=== PATIENT | female | born 2000 | race Caucasian/White ===

== ENCOUNTER 2019-01-10 19:13 | Emergency (ER) | payer OTHER ==
[2019-01-10 19:47] VITALS: BP 120/88
[2019-01-10] MEDS ORDERED: Albuterol 2.5 MG/3 ML NEB.SOL* (0.083%) INH ONE (19:57)
--- NOTE | 2019-01-10 20:08 | UC ---
UC General HPI - HPI Summary HPI Summary: awoke this am with a sore throat, throat felt swollen plus having some cough and wheezing. no cp. + hx asthma. +fever and muscle aches. - History of Current Complaint Chief Complaint: UCGeneralIllness Stated Complaint: FEVER,COUGH,SINUS COMPLAINT Time Seen by Provider: 01/10/19 19:42 Hx Obtained From: Patient Hx Last Menstrual Period: 11/24/18 Onset/Duration: Gradual Onset Timing: Constant Pain Intensity: 0 - Allergy/Home Medications Allergies/Adverse Reactions: Allergies Allergy/AdvReac Type Severity Reaction Status Date / Time No Known Allergies Allergy Verified 01/10/19 19:47 Home Medications: Home Medications Acetaminophen [Tylenol] 2 tab PO ONCE 01/10/19 [History Confirmed 01/10/19] Albuterol HFA INHALER* [Ventolin HFA Inhaler*] 2 puff INH ONCE 01/10/19 [ History Confirmed 01/10/19] D-Methorphan/PE/Acetaminophen [Daytime Cold Relief Caplet] 1 tab PO ONCE [History Confirmed 01/10/19] PMH/Surg Hx/FS Hx/Imm Hx Respiratory History: Asthma - Surgical History Surgical History: Yes Surgery Procedure, Year, and Place: strasbismus 2018 - Family History Known Family History: Positive: Non-Contributory - Social History Occupation: Employed Part-time - working as camp couselor Lives: With Family Alcohol Use: None Substance Use Type: None Smoking Status (MU): Never Smoked Tobacco - Immunization History Vaccination Up to Date: Yes Review of Systems All Other Systems Reviewed And Are Negative: Yes Constitutional: Positive: Fever Eyes: Negative: Eye Redness ENT: Positive: Sore Throat. Negative: Ear Ache, Sinus Congestion Respiratory: Positive: Shortness Of Breath, Cough Cardiovascular: Negative: Palpitations, Chest Pain Musculoskeletal: Positive: Myalgia Physical Exam Triage Information Reviewed: Yes Appearance: Well-Appearing Vital Signs: Initial Vital Signs Temp 98.2 F 01/10/19 19:43 Pulse 64 01/10/19 19:43 Resp 14 01/10/19 19:43 BP 120/88 01/10/19 19:43 Pulse Ox 97 01/10/19 19:43 Vital Signs Reviewed: Yes Eyes: Positive: Conjunctiva Clear ENT: Positive: Pharyngeal erythema - slight, TMs normal, Uvula midline. Negative: Nasal congestion, Nasal drainage, Trismus, Muffled voice, Hoarse voice Neck: Positive: Supple, Nontender, No Lymphadenopathy Respiratory: Positive: No respiratory distress, Decreased breath sounds, Wheezing. Negative: Crackles, Rhonchi Cardiovascular: Positive: RRR, No Murmur Abdomen Description: Positive: Nontender Musculoskeletal: Positive: ROM Intact Neurological: Positive: Alert Psychological: Positive: Age Appropriate Behavior Skin Exam: Normal Diagnostics - Laboratory Lab Results: rapid strep=negative Re-Evaluation - Re-Evaluation First Eval Re-Evaluation Time: 20:17 Change: Improved - lungs clear with good aeration throughout. pt feels breathing is much better. Course/Dx - Diagnoses Provider Diagnosis: Asthma Discharge - Sign-Out/Discharge Documenting (check all that apply): Patient Departure All imaging exams completed and their final reports reviewed: No Studies - Discharge Plan Condition: Stable Disposition: HOME Patient Education Materials: Asthma (ED), Pharyngitis (ED) Forms: *Gen. Provider Communication Referrals: Shelly Rubi MD [Primary Care Provider] - Additional Instructions: USE YOUR RECUSE INHALER 2 PUFFS EVERY SIX HOURS WHILE AWAKE. FOLLOW UP WITH YOUR DOCTOR IF NOT BETTER IN 3-5 DAYS OR SOONER IF WORSE. - Billing Disposition and Condition Condition: STABLE Disposition: Home
== END 2019-01-10 20:30 | disposition home or self-care (01) ==
LOC: UCCORT 19:13
DX: J45.909 Unspecified asthma, uncomplicated (principal)
CPT/HCPCS: 87651; 99202; G0463